=== PATIENT | female | born 1945 | race Hispanic/Latino ===

== ENCOUNTER 2017-06-16 16:54 | Emergency (ER) | payer MEDICARE ==
[2017-06-16 17:07] VITALS: BP 168/89; PULSE 109; RESP 20; O2SAT 100
[2017-06-16 18:30] LABS: BASO # 0.1 K/uL (0.0-0.2); EOS # 0.1 K/uL (0.0-0.7); EOS % 1.4 % (0.0-4.0); HEMATOCRIT 38.6 % (34.0-47.0); LYMPH # 2.3 K/uL (1.0-4.3); LYMPH % 30.6 % (20.0-40.0); MEAN CELL VOLUME 88.7 fl (81.0-99.0); MEAN CORPUSCULAR HEMOGLOBIN 30.2 pg (27.0-31.0); MONO # 0.7 K/uL (0.0-0.8); MONO % 9.3 % (0.0-10.0); NEUT # 4.3 K/uL (1.8-7.0); NEUT % 57.7 % (50.0-75.0); NRBC % 0.1 % (0.0-0.0); WHITE BLOOD COUNT 7.4 K/uL (4.8-10.8)
[2017-06-16 18:32] VITALS: TEMP 98.8
[2017-06-16 18:41] LABS: BLOOD UREA NITROGEN 11 mg/dl (7-17); CALCIUM 10.3 mg/dL (8.4-10.2); CARBON DIOXIDE 24 mmol/L (22-30); CHLORIDE 103 mmol/L (98-107); GFR AFRICAN-AMERICAN > 60; GLUCOSE,RANDOM 141 mg/dL (65-105); SODIUM 140 mmol/l (132-148)
[2017-06-16 18:54] LABS: POTASSIUM 4.2 MMOL/L (3.6-5.0)
--- NOTE | 2017-06-16 19:08 | ED PDOC ---
Lower Extremity Pain/Injury Time Seen by Provider: 06/16/17 17:29 Chief Complaint (Nursing): Lower Extremity Problem/Injury Chief Complaint (Provider): Left leg pain History Per: Patient History/Exam Limitations: no limitations Onset/Duration Of Symptoms: Hrs, Intermittent Episodes Current Symptoms Are (Timing): Still Present Severity: Mild Additional Complaint(s): Patient is a 71 year old female with a past medical history of diabetes, hypertension, and gastritis presenting to the emergency department for mild and intermittent left leg pain that began this morning and starts below the knee and radiates to her foot. Notes that she walks frequently and habitually. Denies other complaints including chest pain, swelling, fever, shortness of breath, and denies any surgical history. PCP: Dr. Gonsales. Past Medical History Reviewed: Historical Data, Nursing Documentation, Vital Signs Vital Signs: Last Vital Signs Temp 98.8 F 06/16/17 18:31 Pulse 109 H 06/16/17 17:03 Resp 20 06/16/17 17:03 BP 168/89 H 06/16/17 17:03 Pulse Ox 100 06/16/17 17:03 - Medical History PMH: Diabetes, Gastritis, HTN - Surgical History Surgical History: No Surg Hx - Family History Family History: States: Unknown Family Hx - Social History Current smoker - smoking cessation education provided: No Ex-Smoker (has not smoked in the last 12 months): No Alcohol: None Drugs: Denies - Allergies Allergies/Adverse Reactions: Allergies Allergy/AdvReac Type Severity Reaction Status Date / Time aspirin Allergy NAUSEA Verified 06/16/17 17:02 Review of Systems ROS Statement: Except As Marked, All Systems Reviewed And Found Negative Constitutional: Negative for: Fever Cardiovascular: Negative for: Chest Pain Respiratory: Negative for: Shortness of Breath Musculoskeletal: Positive for: Leg Pain (left, mild, intermittent, begins below the knee and radiates to foot). Negative for: Other (swelling) Physical Exam - Reviewed Nursing Documentation Reviewed: Yes Vital Signs Reviewed: Yes - Physical Exam Appears: Positive for: Well, Non-toxic, No Acute Distress Head Exam: Positive for: ATRAUMATIC, NORMAL INSPECTION, NORMOCEPHALIC Skin: Positive for: Normal Color, Warm, Dry Eye Exam: Positive for: Normal appearance, EOMI Neck: Positive for: Normal, Painless ROM, Supple Cardiovascular/Chest: Positive for: Regular Rate, Rhythm. Negative for: Murmur Respiratory: Positive for: Normal Breath Sounds. Negative for: Accessory Muscle Use, Respiratory Distress Gastrointestinal/Abdominal: Positive for: Normal Exam, Soft. Negative for: Tenderness Back: Positive for: Normal Inspection Extremity: Positive for: Normal ROM, Other (Varicose veins on bilateral lower extremities). Negative for: Pedal Edema Neurologic/Psych: Positive for: Alert, Oriented - Laboratory Results Result Diagrams: 06/16/17 18:10 06/16/17 18:10 - ECG O2 Sat by Pulse Oximetry: 100 (RA) Pulse Ox Interpretation: Normal Medical Decision Making Medical Decision Making: Time: 18:04 Initial Impression: Leg pain Differential diagnoses: Neuropathy, rule out deep vein thrombosis, muscle spasm Initial Plan: Urine Dipstick Ultrasound Left Lower Extremity Reevaluation 20:02 Ultrasound pending. Patient's condition remains stable. 20:17 US reviewed: no acute findings Deep veins: Normal color and spectral Doppler flow. Normal compressibility. No deep vein thrombosis from common femoral to popliteal vein. Superficial veins: No thrombosis. Soft tissues: No popliteal cyst. IMPRESSION: 1. No evidence of DVT within LEFT lower extremity. Scribe Attestation: Documented by Frances Webb, acting as a scribe for Jame Fierro MD. Provider Scribe Attestation: All medical record entries made by the Scribe were at my direction and personally dictated by me. I have reviewed the chart and agree that the record accurately reflects my personal performance of the history, physical exam, medical decision making, and the department course for this patient. I have also personally directed, reviewed, and agree with the discharge instructions and disposition. Disposition - Clinical Impression Clinical Impression: Leg pain, left - Patient ED Disposition Is Patient to be Admitted: No Doctor Will See Patient In The: Office Counseled Patient/Family Regarding: Studies Performed, Diagnosis, Need For Followup - Disposition Referrals: Vj Gonsales MD [Staff Provider] - Disposition: Routine/Home Disposition Time: 20:07 Condition: GOOD Additional Instructions: Follow up with your PCP in 2-3 days. Instructions: Leg Pain (ED)
--- NOTE | 2017-06-16 20:14 | US ---
EXAM: US Duplex Left Lower Extremity Veins CLINICAL HISTORY: 71 years old, female; Pain; Leg, lower; Left; Additional info: Left leg pain TECHNIQUE: Real-time ultrasound scan of the veins of the left lower extremity with color Doppler flow, spectral waveform analysis and compression. COMPARISON: No relevant prior studies available. FINDINGS: Deep veins: Normal color and spectral Doppler flow. Normal compressibility. No deep vein thrombosis from common femoral to popliteal vein. Superficial veins: No thrombosis. Soft tissues: No popliteal cyst. IMPRESSION: 1. No evidence of DVT within LEFT lower extremity.
== END 2017-06-16 20:29 | disposition home or self-care (01) ==
LOC: H.ER 16:54
DX: M79.605 Pain in left leg (principal); E11.9 Type 2 diabetes mellitus without complications; I10 Essential (primary) hypertension